=== PATIENT | male | born 1985 | race African-American/Black ===

== ENCOUNTER → 2021-04-16 | Outpatient (CLI) | payer OTHER ==
[~2021-04-16] MED LIST: METHACHOLINE KIT (J7674) INH ONE
== END ==
LOC: M CARPUL 09:09
PROVIDERS: ATTEND Nurse Practitioner Adult Health
DX: R06.02 Shortness of breath (principal); Z53.9 Procedure and treatment not carried out, unspecified reason

== ENCOUNTER → 2021-05-07 | Outpatient (CLI) | payer OTHER ==
--- NOTE | 2021-05-07 09:55 | PFTRPT ---
Height: 69.50 Inches Weight: 206.00 Lbs BSA: 2.10 Diagnosis: R06.02 DATE: 05/07/2021 ORDERED BY: Marlen Luna NP QUALITY: Study of excellent technical quality. PROCEDURE: Under protocol, methacholine was administered. Even after a maximal dose of 25 mg or 188.875 CDUs, no provocation dose ever achieved. IMPRESSION: Negative methacholine challenge study. MTDD
== END ==
LOC: M CARPUL 09:00
PROVIDERS: ATTEND Nurse Practitioner Adult Health
DX: R06.02 Shortness of breath (principal)
CPT/HCPCS: 94070; J7674

== ENCOUNTER 2022-10-15 18:07 | Emergency (ER) | payer OTHER ==
[~2022-10-15] VITALS: Ht 205.7 cm; Wt 98.3 kg
[2022-10-15] MEDS ORDERED: IBUP200C25 PO (18:14)
[2022-10-16] MEDS ORDERED: CYCL-707 PO (01:37)
[2022-10-16 01:40] VITALS: BP 138/75
[2022-10-16] MEDS ORDERED: CYCLOBENZAPRINE 10MG TABLET PO ONE (01:45)
== END 2022-10-16 01:51 | disposition home or self-care (01) ==
LOC: M ED 18:07
DX: M25.511 Pain in right shoulder (principal); M54.12 Radiculopathy, cervical region; K46.9 Unspecified abdominal hernia without obstruction or gangrene; Z79.891 Long term (current) use of opiate analgesic

== ENCOUNTER 2022-10-22 17:37 | Emergency (ER) | payer OTHER ==
[~2022-10-22] VITALS: Ht 175.3 cm; Wt 96.8 kg
[~2022-10-22 17:37] MED LIST changes: +CYCL-707 PO; +IBUP200C25 PO; -METHACHOLINE KIT (J7674) INH ONE
[2022-10-22 17:38] VITALS: BP 142/89
[2022-10-22 22:11] LABS: CK-MB VALUE MASS < 1.0 NG/ML (<3.6)
[2022-10-22 22:13] LABS: ALBUMIN 3.6 G/DL (3.2-5.2); ALKALINE PHOSPHATASE 59 U/L (46-116); ALT/SGPT 40 U/L (7.0-40); AST/SGOT 22 U/L (<34); BILIRUBIN,DIRECT < 0.1 MG/DL (<0.4); BILIRUBIN,TOTAL 0.3 MG/DL (0.3-1.2); BLOOD UREA NITROGEN 11 MG/DL (9-23); CALCIUM LEVEL 8.7 MG/DL (8.5-10.1); CARBON DIOXIDE LEVEL 27 MMOL/L (20-31); CHLORIDE LEVEL 106 MMOL/L (98-107); CPK CREATINE PHOSPHOKINASE 180 U/L (46-171); CREATININE FOR GFR 0.78 MG/DL (0.70-1.30); GLOMERULAR FILTRATION RATE > 60.0 (>60); GLUCOSE, FASTING 82 MG/DL (60-100); MB/CK RELATIVE INDEX 0.55 (< OR =4); POTASSIUM SERUM 4.1 MMOL/L (3.5-5.1); SODIUM LEVEL 141 MMOL/L (136-145); TOTAL PROTEIN 7.2 G/DL (5.7-8.2)
== END 2022-10-23 01:30 | disposition left against medical advice (07) ==
LOC: M ED 17:37
DX: Z53.21 Procedure and treatment not carried out due to patient leaving prior to being seen by health care provider (principal)

== ENCOUNTER → 2023-02-02 | Outpatient (CLI) | payer OTHER ==
[~2023-02-02] MED LIST changes: +ISOVUE-300 61% 100ML VIAL ONE; +LIDOCAINE 1% MDV 20ML VIAL ONE; +PROHANCE 279.3MG/ML 5ML VIAL ONE
== END ==
LOC: M PLAIMG 13:00
DX: M25.511 Pain in right shoulder (principal)
CPT/HCPCS: 23350; 73223; 76000; A9576; Q9967